=== PATIENT | male | born 1985 | race Caucasian/White ===

== ENCOUNTER 2020-04-23 12:36 | Emergency (ER) | payer OTHER, SELFPAY ==
[~2020-04-23] VITALS: Ht 177.8 cm; Wt 108.9 kg
[2020-04-23 12:40] VITALS: Ht 177.8 cm; Wt 108.9 kg
[2020-04-23 13:23] VITALS: BP 130/79
== END 2020-04-23 13:23 | disposition home or self-care (01) ==
LOC: ED 12:36
DX: R06.02 Shortness of breath (principal); R05 Cough; Z20.828 Contact with and (suspected) exposure to other viral communicable diseases
CPT/HCPCS: U0003